=== PATIENT | female | born 1980 | race Caucasian/White ===

== ENCOUNTER 2020-02-22 09:28 | Emergency (ER) | payer OTHER, SELFPAY ==
[2020-02-22 09:32] VITALS: BP 119/74; PULSE 83; RESP 18; TEMP 36.8; O2SAT 99
[2020-02-22 10:10] VITALS: BP 103/68; BP 110/70; PULSE 74; PULSE 91
[2020-02-22 10:12] VITALS: BP 103/73; PULSE 86
[2020-02-22 10:32] LABS: Basophils Absolute Auto 0.1 K/mm3 (0.0-0.1); Eosinophils Absolute Auto 0.1 K/mm3 (0-0.3); Eosinophils Percent Auto 1.9 % (0-4.4); Hematocrit 40.7 % (37.0-47.0); Hemoglobin 13.3 g/dL (12.0-15.0); Immature Granulocyte Absolute 0.02 K/mm3 (0.00-0.031); Immature Granulocyte Percent A 0.4 % (0-0.5); Lymphocytes Absolute Auto 1.34 K/mm3 (0.9-3.2); Lymphocytes Percent Auto 25.7 % (18.3-44.2); Mean Corpuscular HGB Conc 32.7 g/dl (32-36); Mean Corpuscular Hemoglobin 28.9 pg (26-34); Mean Corpuscular Volume 88.3 fl (80-100); Mean Platelet Volume 10.3 fl (7.4-10.4); Monocytes Absolute Auto 0.6 K/mm3 (0.1-0.6); Monocytes Percent Auto 12.1 % (2.6-8.5); Neutrophils Absolute Auto 3.1 K/mm3 (1.3-6.7); Neutrophils Percent Auto 58.9 % (45.5-73.1); Platelet Count Result 245 k/mm3 (150-375); Red Blood Count 4.61 M/mm3 (4.2-5.4); Red Cell Distribution Width 13.2 % (11.5-14.5); White Blood Count 5.2 K/mm3 (4.5-10.0)
[2020-02-22 10:45] LABS: Alanine Aminotransferase 23 U/L (4-35); Albumin Level 4.7 g/dL (3.5-5.1); Alkaline Phosphatase 60 U/L (38-126); Aspartate Amino Transferase 23 U/L (14-36); Bilirubin,Total 0.4 mg/dL (0.2-1.3); Blood Urea Nitrogen 30 mg/dL (7-17); Calcium 9.4 mg/dL (8.4-10.2); Carbon Dioxide 25 mmol/L (22-30); Chloride 102 mmol/L (98-107); Estimated CRCL calculation 85 ml/min; Estimated Glomerular Filt Rate > 60; Glucose 114 mg/dL (65-105); Lipase 217 U/L (23-300); Potassium 4.3 mmol/L (3.4-5.0); Sodium 134 mmol/L (137-145)
[2020-02-22] MEDS: SODIUM CHLORIDE 0.9% IV 1,000 ML 999 ML IV CONT (11:04)
[2020-02-22] MEDS: ONDANSETRON INJ 4 MG/2 ML VIAL IV PUSH (11:05)
[2020-02-22] MEDS: FAMOTIDINE 20 MG/2 ML VIAL IV PUSH (11:05)
--- NOTE | 2020-02-22 11:12 | PC.NURSE ---
Report to TAI Mclain, to continue care.
[2020-02-22 11:13] LABS: Add Urine Microscopic? NO; Appearance Urine Clear (Clear); Bilirubin Urine Negative (Negative); Blood Urine Negative (Negative); Color Urine Yellow (Yellow); Glucose Urine UA Negative (Negative); Ketones Urine Negative (Negative); Leukocyte Esterase Ur Negative LEU/UL (Negative); Nitrate Urine Negative (Negative); Protein Urine Negative (Negative); Specific Grav Ur 1.027 (1.001-1.035); Urobilinogen Urine Negative mg/dL (<2.0)
--- NOTE | 2020-02-22 11:42 | ED.GENADULT ---
HPI - General Adult General Chief complaint: Nausea/Vomiting/Diarrhea <Federico Alvarenga PA-C - Last Filed: 02/22/20 12:49> Stated complaint: N/V, FEVER <MIMI Du Last Filed: 02/22/20 12:49> Time Seen by Provider: 02/22/20 10:14 <Federico Alvarenga PA-C - Last Filed: 02/22/20 12:49> Source: patient <Federico Alvarenga PA-C - Last Filed: 02/22/20 12:49> Mode of arrival: ambulatory <MIMI Du Last Filed: 02/22/20 12:49> Limitations: no limitations <MIMI Du Last Filed: 02/22/20 12:49> History of Present Illness HPI narrative: Patient is a 39-year-old female who presents to emergency department for evaluation of upper respiratory symptoms coupled with nausea and vomiting that began in the last 24 hours 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 Patient notes sore throat nonproductive cough nausea and vomiting . Patient had difficulty tolerating p.o. intake patient has not taken anything for symptoms today. Patient notes mild cramping of the abdomen <MIMI Du Last Filed: 02/22/20 12:49> Related Data Allergies/adverse reactions: Allergies Allergy/AdvReac Type Severity Reaction Status Date / Time No Known Allergies Allergy Verified 02/22/20 09:47 <Federico Alvarenga PA-C - Last Filed: 02/22/20 12:49> Review of Systems Review of Systems: All systems reviewed & are unremarkable except as noted in HPI and below <Federico Alvarenga PA-C - Last Filed: 02/22/20 12:49> PMFSH Social History Social History: Social History Smoking status: Never smoker Second hand tobacco smoke exposure: Yes Alcohol intake: current <MIMI Du Last Filed: 02/22/20 12:49> Exam Narrative: Exam Narrative: GENERAL: Well-appearing, well-nourished, and in no acute distress. HEAD: Normocephalic, atraumatic. EYES: PERRLA and EOMI. ENT: Nares clear, no rhinorrhea or epistaxis. Mucous membranes moist. Oropharynx without tonsillar hypertrophy exudate or other lesions. CHEST: Clear to auscultation. No respiratory distress. No wheezes rales or rhonchi HEART: Regular rate and rhythm. No murmur heard. Normal peripheral pulses. ABDOMEN: Soft, nontender, nondistended EXTREMITIES: Normal range of motion. No edema. SKIN: Warm, dry, no rash. NEURO: No focal deficits. Alert and oriented x3. PSYCH: Normal mood and affect. <Federico Alvarenga PA-C - Last Filed: 02/22/20 12:49> HENMT: Face and sinus: normal facial exam <MIMI Du Last Filed: 02/22/20 12:49> Course Course Emergency Course: Patient in the room aware of case findings treatment plan and diagnosis agreeing to follow-up as directed or to return if symptoms worsen or concerns <Federico Alvarenga PA-C - Last Filed: 02/22/20 12:49> Vital Signs Vital signs: Vital Signs Temperature 98.2 F 02/22/20 09:32 Pulse Rate 83 02/22/20 09:32 Respiratory Rate 18 02/22/20 09:32 Blood Pressure 119/74 02/22/20 09:32 Pulse Oximetry 99 02/22/20 09:32 Temperature 98.2 F 02/22/20 09:32 Pulse Rate 76 02/22/20 12:29 Respiratory Rate 18 02/22/20 12:29 Blood Pressure 105/53 L 02/22/20 12:29 Pulse Oximetry 99 02/22/20 12:29 <MIMI Du Last Filed: 02/22/20 12:49> Vital Signs Temperature 98.2 F 02/22/20 09:32 Pulse Rate 83 02/22/20 09:32 Respiratory Rate 18 02/22/20 09:32 Blood Pressure 119/74 02/22/20 09:32 Pulse Oximetry 99 02/22/20 09:32 Temperature 98.2 F 02/22/20 09:32 Pulse Rate 76 02/22/20 12:29 Respiratory Rate 18 02/22/20 12:29 Blood Pressure 105/53 L 02/22/20 12:29 Pulse Oximetry 99 02/22/20 12:29 <Liza Muñiz MD - Last Filed: 02/22/20 13:32> Medical Decision Making MDM Narrative Medical decision making narrative: Patient in the room aware of case findings treatment plan and diagnosis
[2020-02-22 12:29] VITALS: BP 105/53; PULSE 76; RESP 18; O2SAT 99
[2020-02-22] MEDS: LACTATED RINGERS 1,000 ML 999 ML IV CONT (12:29)
[2020-02-22 13:32] VITALS: BP 120/68; PULSE 78; RESP 18
[2020-02-22 20:02] LABS: SARS-CoV-2 RNA PCR Negative
== END 2020-02-22 13:34 | disposition home or self-care (01) ==
PROVIDERS: Emergency Medicine Emergency Medical Services; Emergency Provider Emergency Medicine; PCP Family Medicine
DX: J06.9 Acute upper respiratory infection, unspecified (principal); Z20.828 Contact with and (suspected) exposure to other viral communicable diseases; Z77.22 Contact with and (suspected) exposure to environmental tobacco smoke (acute) (chronic)
CPT/HCPCS: 36415; 80053; 81003; 81025; 83690; 85025; 87635; 96361; 96365; 96375; 99284; C9803; J0131; J2405; J7030; J7120; U0003

== ENCOUNTER 2020-05-20 20:35 | Emergency (ER) | payer OTHER, SELFPAY ==
--- NOTE | ~2020-05-20 | CT_ITS ---
EXAMINATION: CT abdomen pelvis w con DATE: 05/20/2020 22:13 INDICATION: Bilateral flank pain TECHNIQUE: Computed tomography (CT) of the abdomen and pelvis was performed with 100 mL Omnipaque-350 intravenous contrast. Automated exposure control and iterative reconstruction technique were employe d. The dose-length product was 263.09 mGy-cm. COMPARISON: None FINDINGS: Lung bases are clear. Heart size is normal. No pericardial or pleural effusion. Liver, gallbladder, s pleen, pancreas and bilateral adrenal glands are normal. 4 mm low-attenuation cyst in the inferior le ft kidney. There is urothelial enhancement along the right ureter and renal pelvis with peripheral we dge-shaped regions of decreased cortical enhancement throughout the right kidney consistent with asce nding urinary tract infection and pyelonephritis. Diffuse mild wall thickening at the bladder consist ent with associated cystitis. Bowels including the appendix are normal. Anteverted uterus and bilater al adnexa are unremarkable. Small amount of likely physiologic free fluid in the cul-de-sac. No patho logically enlarged abdominal or pelvic lymphadenopathy. Mild lower thoracic spondylosis. IMPRESSION: 1. Cystitis and right pyelonephritis. Reviewed, dictated and finalized at location A.
[2020-05-20 20:41] VITALS: BP 139/78; PULSE 110; RESP 18; TEMP 37.3; O2SAT 100
--- NOTE | 2020-05-20 21:00 | ED.FEMALEGU ---
HPI - Female Genitourinary General Chief complaint: Urogenital-Female Stated complaint: ??UTI Time Seen by Provider: 05/20/20 20:48 History of Present Illness HPI Narrative: 39 yo female presnets c/o UTi. She reports that she began having bilateral low back/flank pain 5 days ago. This is associated with tingling with urination. She tried pyridium today with partial relief. No fever, nausea, vomiting. Related Data Allergies Allergy/AdvReac Type Severity Reaction Status Date / Time No Known Allergies Allergy Verified 05/20/20 20:44 Review of Systems Review of Systems: All systems reviewed & are unremarkable except as noted in HPI and below Constitutional: Constitutional: Reports chills and Reports fatigue ENT: Denies dizziness Cardiovascular: Cardiovascular: Denies chest pain Respiratory: Respiratory: Denies dyspnea Gastrointestinal: Gastrointestinal: Denies abdominal pain, Denies constipation, Denies diarrhea, Denies nausea and Denies vomiting Genitourinary: Genitourinary: Denies hematuria, Reports dysuria and Reports flank pain Neurologic: Reports dizziness, Denies numbness and Denies weakness PMFSH Social History Social History Smoking status: Never smoker Second hand tobacco smoke exposure: Yes Alcohol intake: current Exam Const: General: healthy appearing, no acute distress and alert Nutritional Appearance: well nourished Orientation/consciousness: patient oriented x3 HENMT: Head: normal to inspection Resp: Effort & Inspection: normal respiratory effort Auscultation: clear to auscultation bilaterally, no rales, no rhonchi and no wheezes Cardio: Jugular venous distension: no JVD Rate: regular rate Rhythm: regular rhythm Heart sounds: no murmurs GI: Inspection: non-distended GI Palp: Yes Soft to palpation and No Tenderness to palpation present (GI) : General: Yes CVA tenderness on the right Skin: General skin exam: normal color Neuro: General: patient oriented x3, moves all extremities and CN's II-XI intact bilaterally Speech: normal speech Gait exam (Neuro): Normal gait present Extrem: General: normal to inspection and no edema Psych: Appearance: well kempt Affect: normal affect Course Vital Signs Vital signs: Vital Signs Temperature 37.3 C 05/20/20 20:41 Pulse Rate 110 H 05/20/20 20:41 Respiratory Rate 18 05/20/20 20:41 Blood Pressure 139/78 05/20/20 20:41 Pulse Oximetry 100 05/20/20 20:41 Temperature 36.8 C 05/20/20 23:18 Pulse Rate 77 05/20/20 23:18 Respiratory Rate 18 05/20/20 23:18 Blood Pressure 106/75 05/20/20 23:18 Pulse Oximetry 98 05/20/20 23:18 MDM - Female Genitourinary MDM Narrative Medical decision making narrative: CT shows right pyelonephritis. Given dose of ceftriaxone. Feeling better after Toradol. She appears well. Mild WBC elevation. I believe that she is a good candidate for outpatient treatment. She is in agreement and would prefer to be discharged. Differential Diagnosis Differential diagnosis: Likely urinary tract infection, cystitis and other (pyelonephritis) Medical Records Attestation: I reviewed the patient's medical records. Lab Data Attestation: I reviewed the patient's lab results. Result diagrams: 05/20/20 21:14 05/20/20 21:13 Labs: Lab Results 05/20/20 05/20/20 05/20/20 Range/Units 21:13 21:14 21:14 WBC 12.0 H (4.5-10.0) K/mm3 RBC 4.07 L (4.2-5.4) M/mm3 Hgb 11.7 L (12.0-15.0) g/dL Hct 35.5 L (37.0-47.0) % MCV 87.2 (80-100) fl MCH 28.7 (26-34) pg MCHC 33.0 (32-36) g/dl RDW 13.2 (11.5-14.5) % Plt Count 208 (150-375) k/mm3 MPV 9.0 (7.4-10.4) fl Immature Gran % (Auto) 0.4 (0-0.5) % Neut % (Auto) 85.8 H (45.5-73.1) % Lymph % (Auto) 5.1 L (18.3-44.2) % [place] % (Auto) 7.9 (2.6-8.5) % Eos % (Auto) 0.2 (0-4.4) % Baso % (Auto) 0.6 (0.2-1.2
[2020-05-20] MEDS: SODIUM CHLORIDE 0.9% IV 1,000 ML 999 ML IV CONT (21:02)
[2020-05-20] MEDS: KETOROLAC 30 MG/ML VIAL (*BKC) IV PUSH (21:03)
[2020-05-20 21:21] LABS: Basophils Absolute Auto 0.1 K/mm3 (0.0-0.1); Basophils Percent Auto 0.6 % (0.2-1.2); Eosinophils Percent Auto 0.2 % (0-4.4); Hematocrit 35.5 % (37.0-47.0); Hemoglobin 11.7 g/dL (12.0-15.0); Immature Granulocyte Absolute 0.05 K/mm3 (0.00-0.031); Immature Granulocyte Percent A 0.4 % (0-0.5); Lymphocytes Absolute Auto 0.61 K/mm3 (0.9-3.2); Lymphocytes Percent Auto 5.1 % (18.3-44.2); Mean Corpuscular Hemoglobin 28.7 pg (26-34); Mean Corpuscular Volume 87.2 fl (80-100); Monocytes Percent Auto 7.9 % (2.6-8.5); Neutrophils Absolute Auto 10.3 K/mm3 (1.3-6.7); Neutrophils Percent Auto 85.8 % (45.5-73.1); Platelet Count Result 208 k/mm3 (150-375); Red Blood Count 4.07 M/mm3 (4.2-5.4); Red Cell Distribution Width 13.2 % (11.5-14.5)
[2020-05-20 21:26] LABS: Add Urine Microscopic? YES; Appearance Urine Cloudy (Clear); Bacteria Urine Trace /hpf; Bilirubin Urine Negative (Negative); Blood Urine 3+ (Negative); Color Urine Amber (Yellow); Glucose Urine UA Negative (Negative); Ketones Urine Trace mg/dL (Negative); Leukocyte Esterase Ur 2+ LEU/UL (Negative); Mucus Urine Rare /lpf; Nitrate Urine Positive (Negative); Protein Urine 2+ mg/dL (Negative); RBC Urine 21-50 /hpf (0-2); Specific Grav Ur 1.013 (1.001-1.035); WBC Clumps Urine Present /HPF; WBC Urine >75 /hpf
[2020-05-20 21:31] LABS: Anion Gap 9 mmol/L (8-16); Blood Urea Nitrogen 12 mg/dL (7-17); Calcium 9.6 mg/dL (8.4-10.2); Carbon Dioxide 32 mmol/L (22-30); Chloride 96 mmol/L (98-107); Estimated Glomerular Filt Rate > 60; Glucose 115 mg/dL (65-105); Potassium 3.7 mmol/L (3.4-5.0); Sodium 137 mmol/L (137-145)
[2020-05-20 21:38] VITALS: BP 117/72; PULSE 97; RESP 20; O2SAT 97
[2020-05-20 23:18] VITALS: BP 106/75; PULSE 77; RESP 18; TEMP 36.8; O2SAT 98
== END 2020-05-20 23:19 | disposition home or self-care (01) ==
PROVIDERS: Emergency Provider Emergency Medicine; PCP Family Medicine
DX: N12 Tubulo-interstitial nephritis, not specified as acute or chronic (principal); N30.90 Cystitis, unspecified without hematuria
CPT/HCPCS: 36415; 74177; 80048; 81001; 81025; 85025; 87077; 87086; 87088; 87186; 96361; 96365; 96375; 99284; J0696; J1885; J7030; Q9967

== ENCOUNTER 2024-03-13 09:52 | Emergency (ER) | payer OTHER, SELFPAY ==
[2024-03-13 09:57] VITALS: BP 118/63; PULSE 75; RESP 16; TEMP 36.7; O2SAT 100
--- NOTE | 2024-03-13 10:04 | ED.ANIMALBIT ---
HPI - Animal Bite General Chief Complaint: Animal Bite Stated Complaint: dog bite, RUE Time Seen by Provider: 03/13/24 10:00 Source: patient Mode of arrival: ambulatory Limitations: no limitations History of Present Illness HPI narrative: Patient is a 43 y/o female who presents to the ED with c/o a dog bite to her right forearm. 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 when she was bit by the suspect dog. Sustained a bite dannielle to her right forearm. Denies any other injuries. Dog is up-to-date on its vaccines. Patient's tetanus up-to-date. She states her work requires her to be evaluated. Denies pain, numbness, fevers. Related Data Allergies Allergy/AdvReac Type Severity Reaction Status Date / Time No Known Allergies Allergy Verified 05/25/20 11:02 Review of Systems Review of Systems: CONSTITUTIONAL: Denies fever, chills, or sweats. SKIN: See HPI MUSCULOSKELETAL: Denies extremity pain . NEUROLOGIC: Denies numbness, or weakness. All systems reviewed & are unremarkable except as noted in HPI and below PMFSH Social History Social History Smoking status: Never smoker Second hand tobacco smoke exposure: Yes Alcohol intake: current Exam Narrative: GENERAL: Well appearing, well-nourished, non-toxic, in no acute distress. HEAD: Normocephalic, atraumatic. RESPIRATORY: Airway patent, respirations nonlabored. CARDIOVASCULAR: Regular rate and rhythm . Radial pulses strong and easily palpable. MUSCULOSKELETAL: Moves all extremities. No gross deformities. Full range of motion of right arm. SKIN: Warm, dry, normal color. Two small scabbed puncture wounds to right forearm, no active bleeding or drainage. No surrounding erythema. Sensation intact. NEURO: A&O X3. Speech clear. PSYCHIATRIC: Appropriate mood and affect. Normal interaction. Course Vital Signs Vital signs: Vital Signs Temperature 98.0 F 03/13/24 09:57 Pulse Rate 75 03/13/24 09:57 Respiratory Rate 16 03/13/24 09:57 Blood Pressure 118/63 03/13/24 09:57 Pulse Oximetry 100 03/13/24 09:57 Oxygen Delivery Room Air 03/13/24 09:57 Temperature 98.0 F 03/13/24 09:57 Pulse Rate 75 03/13/24 09:57 Respiratory Rate 16 03/13/24 09:57 Blood Pressure 118/63 03/13/24 09:57 Pulse Oximetry 100 03/13/24 09:57 Oxygen Delivery Room Air 03/13/24 09:57 MDM - Animal Bite MDM Narrative Medical decision making narrative: Minor dog bite puncture wounds to right forearm. Tetanus up-to-date. Patient will be started on Augmentin. Advised to cleanse wound thoroughly daily and monitor for signs of infection. Given return precautions. Discharged in stable condition. Medical Records Attestation: I reviewed the patient's medical records. Discharge Plan Discharge Clinical Impression: Dog bite of right forearm Qualifiers: Encounter type: initial encounter Qualified Code(s): S51.851A - Open bite of right forearm, initial encounter Patient Disposition: Home, Self-Care Condition: Stable Instructions: Antibiotic Form, Animal Bite (ED), Puncture Wound (ED) Additional Instructions: Take antibiotics as prescribed. Cleanse wound daily, monitor for signs of infection. Recommend Tylenol/ibuprofen as needed for pain. Return to the ED if you experience severe pain, redness streaking up/down arm, pus-like drainage, fevers, or any other symptoms of concern. Prescriptions: New amoxicillin-pot clavulanate 875-125 mg tablet 1 tablet PO Q12H 7 Days Qty: 14 0RF No Action omeprazole 40 mg capsule,delayed release(DR/EC) 40 mg PO DAILY Qty: 30 0RF famotidine [Pepcid] 20 mg tablet 20 mg PO BID Qty: 7 0RF cefdinir 300 mg capsule 300 mg PO Q12H Qty: 20 0RF cholecalciferol (vitamin D3) 1,250 mcg (50,000 unit) capsule See Rx Instructions .ROUTE .COMPLEX Qty: 12 0RF Dose Instructio
[2024-03-13] MEDS: AMOXICILLIN/CLAVULANATE K 875-125 MG TAB 1 TABLET PO (10:20)
== END 2024-03-13 10:24 | disposition home or self-care (01) ==
PROVIDERS: Emergency Provider Physician Assistant
DX: S51.851A Open bite of right forearm, initial encounter (principal); W54.0XXA Bitten by dog, initial encounter
CPT/HCPCS: 99283; A9270